=== PATIENT | male | born 1950 | race Caucasian/White ===

== ENCOUNTER → 2017-12-26 | Emergency (ER) | payer MEDICARE, OTHER ==
[~2017-12-26] VITALS: Ht 172.7 cm; Wt 95.2 kg
[~2017-12-26] MED LIST: CELEBREX100 MG PO; COUMADIN2 MG PO; EXTRA STRENGTH500 MG PO; FLOMAX0.4 MG PO; GLUCOSAMINE &1 EAC1 PO; LIDOCAINE-HC 3-07 G2 RC; LOW DOSE ASPIRI81 MG PO; MINIPRESS1 MG PO; PROTONIX40 MG PO; ZESTRIL20 MG PO
== END ==
LOC: ED 07:06
DX: G51.9 Disorder of facial nerve, unspecified (principal); F17.200 Nicotine dependence, unspecified, uncomplicated; Z88.2 Allergy status to sulfonamides; Z79.899 Other long term (current) drug therapy; Z79.82 Long term (current) use of aspirin; Z79.01 Long term (current) use of anticoagulants
CPT/HCPCS: 99282

== ENCOUNTER 2018-07-22 21:00 | Emergency (ER) | payer MEDICARE, OTHER ==
[~2018-07-22] VITALS: Ht 172.7 cm; Wt 95.2 kg
--- OUTSIDE RECORDS SUMMARY | ~2018-07-22 | XMS | Clinical Summary ---
Demographics + + + | Address | [address] | | | [place] [address] | + + + | Home Phone | | + + + | Preferred Language | Unknown | + + + | Marital Status | Unknown | + + + | Methodist Affiliation | Unknown | + + + | Race | Unknown | + + + | Ethnic Group | Unknown | + + + Author + + + | Author | [facility] | + + + | Organization | [facility] | + + + | Address | Unknown | + + + | Phone | Unavailable | + + + Support + + +---------+ + | Name | Relationship | Address | Phone | + + +---------+ + | Katherine Greenfield | ECON | Unknown | | + + +---------+ + | Toma Bradshaw | ECON | Unknown | | + + +---------+ + Care Team Providers + +------+ + | Care Advertising Operations Manager Name | Role | Phone | + +------+ + | Nabeel Mitchell MD | PP | | + +------+ + Allergies + + + + + + | Active Allergy | Reactions | Severity | Noted | Comments | | | | | Date | | + + + + + + | Sulfa Antibiotics | Rash | Medium | 11/17/19 | | | | | | 17 | | + + + + + + Current Medications + + +-------+---------+------+------+-------+ | Prescription | Sig. | Disp. | Refills | Star | End | Statu | | | | | | t | Date | s | | | | | | Date | | | + + +-------+---------+------+------+-------+ | lisinopril | Take 20 mg by mouth | | | | | Activ | | (ZESTRIL) 20 MG | daily. | | | | | e | | tablet | | | | | | | + + +-------+---------+------+------+-------+ | pantoprazole | Take 40 mg by mouth | | | | | Activ | | (PROTONIX) 40 MG | every morning before | | | | | e | | tablet | breakfast. | | | | | | + + +-------+---------+------+------+-------+ | aspirin 81 MG | Take 81 mg by mouth | | | | | Activ | | tablet | daily. | | | | | e | + + +-------+---------+------+------+-------+ | TAMSULOSIN HCL PO | Take 0.8 mg by mouth | | | | | Activ | | | daily. | | | | | e | + + +-------+---------+------+------+-------+ | warfarin | Take 5 mg by mouth. | | | | | Activ | | (COUMADIN) 5 MG | | | | | | e | | tablet | | | | | | | + + +-------+---------+------+------+-------+ | warfarin | Take 2 mg by mouth. | | | | | Activ | | (COUMADIN) 2 MG | | | | | | e | | tablet | | | | | | | + + +-------+---------+------+------+-------+ | LORazepam (ATIVAN) | Take 1 mg by mouth | | | | | Activ | | 1 MG tablet | as needed for | | | | | e | | | Anxiety. | | | | | | + + +-------+---------+------+------+-------+ | fluticasone | 1 spray by Each Nare | | | | | Activ | | (FLONASE) 50 MCG/ACT | route as needed for | | | | | e | | nasal | Rhinitis. | | | | | | + + +-------+---------+------+------+-------+ | hydrocortisone 2.5 | Apply topically as | | | | | Activ | | % cream | needed. | | | | | e | + + +-------+---------+------+------+-------+ | acyclovir | Take 800 mg by mouth | | | | | Activ | | (ZOVIRAX) 800 MG | daily. | | | | | e | | tablet | | | | | | | + + +-------+---------+------+------+-------+ | Cholecalciferol | Take by mouth | | | | | Activ | | (VITAMIN D3 PO) | daily. | | | | | e | + + +-------+---------+------+------+-------+ Active Problems + + + | Problem | Noted Date | + + + | Benign hypertension | 11/17/2016 | + + + | Dyslipidemia | 11/17/2016 | + + + | S/P AVR (aortic valve replacement) and aortoplasty | 06/14/2016 | + + + Family History + +------+ + + | Relation | Name | Status | Comments | + +------+ + + | Father | | | | + +------+ + + | Mother | | | | + +------+ + + Social History + +-------+ +--------+------+ | Tobacco Use | Types | Packs/Day | Years | Date | | | | | Used | | + +-------+ +--------+------+ | Current Some Day | | | | | | Smoker | | | | | + +-------+ +--------+------+ + + +---------+ + | Alcohol Use | Drinks/We | oz/Week | Comments | | | ek | | | + + +---------+ + | Yes | | | beer once every two weeks | + + +---------+ + + + + | Sex Assigned at | Date Recorded | | | | + + + | Not on file | | + + + Last Filed Vital Signs + + + + | Vital Sign | Reading | Time Taken | + + + + | Blood Pressure | 142/72 | 11/17/2016 2:15 PM PST | + + + + | Pulse | 61 | 11/17/2016 2:15 PM PST | + + + + | Temperature | - | - | + + + + | Respiratory Rate | - | - | + + + + | Oxygen Saturation | 97% | 11/17/2016 2:15 PM PST | + + + + | Inhaled Oxygen | - | - | | Concentration | | | + + + + | Weight | 92.5 kg (204 lb) | 11/17/2016 2:15 PM PST | + + + + | Height | 172.7 cm (5' 8") | 11/17/2016 2:15 PM PST | + + + + | Body Mass Index | 31.02 | 11/17/2016 2:15 PM PST | + + + + Plan of Treatment + + + + + | Health Maintenance | Due Date | Last Done | Comments | + + + + + | Colon Cancer | | | | | Screening | 9 | | | | (Colonoscopy) | | | | + + + + + | Vaccine: Zoster (1 | | | | | of 2) | 9 | | | + + + + + | Vaccine: | | | | | Pneumococcal 65+ | 4 | | | | Low/Medium Risk (1 | | | | | of 2 - PCV13) | | | | + + + + + | Vaccine: Influenza | | 08/20/2013, 08/04/2012, | | | (#1) | 8 | 08/07/2010, Additional history | | | | | exists | | + + + + + | Vaccine: | | 10/16/2008 | | | Dtap/Tdap/Td (2 - | 8 | | | | Td) | | | | + + + + + Results Not on filefrom Last 3 Months Insurance + +--------+ +------+-------+ + | Payer | Benefi | Subscriber | Type | Phone | Address | | | t Plan | ID | | | | | | / | | | | | | | Group | | | | | + +--------+ +------+-------+ + | COMMERCIAL OTHER | COMMER | [id number] | | | | | | CIAL | | | | | | | GENERI | | | | | | | C PLAN | | | | | + +--------+ +------+-------+ + | MEDICARE | MEDICA | [id number] | | | [address] | | | RE | | | | [place] [id number] | | | IP-OP | | | | | + +--------+ +------+-------+ + + +--------+ +--------+ + + | Guarantor Name | Accoun | Relation to | Date | Phone | Billing Address | | | t Type | Patient | of | | | | | | | | | | + +--------+ +--------+ + + | JASMEET BRADSHAW | Person | Self [birth year] | Home: | [address] | | | [place] | | 1950 | [phone] | [place] | | | [place] | | | [phone] | [phone] | + +--------+ +--------+ + +
--- OUTSIDE RECORDS SUMMARY | ~2018-07-22 | XMS | Clinical Summary ---
Demographics + + + | Address | [address] | | | [place] [address] | + + + | Home Phone | | + + + | Preferred Language | Unknown | + + + | Marital Status | Single | + + + | Mormonism Affiliation | 1041 | + + + | Race | Unknown | + + + | Ethnic Group | Unknown | + + + Author + + + | Author | [facility] | | | [facility] | + + + | Organization | [facility] | | | [facility] | + + + | Address | Unknown | + + + | Phone | Unavailable | + + + Support + + +---------+ + | Name | Relationship | Address | Phone | + + +---------+ + | Katherine Greenfield | ECON | Unknown | | + + +---------+ + Care Team Providers + +------+ + | Care Drill Press Hand Name | Role | Phone | + +------+ + | Pilar Galdamez MD | PP | | + +------+ + Allergies + + + + + + | Active Allergy | Reactions | Severity | Noted | Comments | | | | | Date | | + + + + + + | Bupropion | Anxiety | High | 02/25/20 | Anxiety and | | | | | 17 | strange dreams | + + + + + + | Sulfa Antibiotics | Rash | Medium | 02/25/20 | | | | | | 17 | | + + + + + + Current Medications + + +-------+---------+------+------+-------+ | Prescription | Sig. | Disp. | Refills | Star | End | Statu | | | | | | t | Date | s | | | | | | Date | | | + + +-------+---------+------+------+-------+ | acyclovir | Take 800 mg by | | | | | Activ | | (ZOVIRAX) 800 mg | mouth. | | | | | e | | tablet | | | | | | | + + +-------+---------+------+------+-------+ | aspirin 81 MG | Take 81 mg by mouth. | | | | | Activ | | tablet | | | | | | e | + + +-------+---------+------+------+-------+ | cholecalciferol | Take by mouth. | | | | | Activ | | (VITAMIN D-3) 400 | | | | | | e | | units capsule | | | | | | | + + +-------+---------+------+------+-------+ | fluticasone | 2 sprays by Nasal | | | | | Activ | | (FLONASE) 50 | route Daily. | | | | | e | | mcg/nasal spray | | | | | | | + + +-------+---------+------+------+-------+ | lisinopril | Take 20 mg by mouth | | | | | Activ | | (PRINIVIL, ZESTRIL) | Daily. | | | | | e | | 20 mg tablet | | | | | | | + + +-------+---------+------+------+-------+ | hydrocortisone | Apply topically. | | | | | Activ | | 2.5% cream | | | | | | e | + + +-------+---------+------+------+-------+ | LORazepam (ATIVAN) | Take 1 mg by mouth. | | | | | Activ | | 1 mg tablet | | | | | | e | + + +-------+---------+------+------+-------+ | pantoprazole | Take 40 mg by mouth. | | | | | Activ | | (PROTONIX) 40 mg | | | | | | e | | tablet | | | | | | | + + +-------+---------+------+------+-------+ | tamsulosin | Take 0.8 mg by mouth | | | | | Activ | | (FLOMAX) 0.4 mg CAPS | nightly. | | | | | e | + + +-------+---------+------+------+-------+ | warfarin | Take 2 mg by mouth | | | | | Activ | | (COUMADIN) 2 mg | Daily. | | | | | e | | tablet | | | | | | | + + +-------+---------+------+------+-------+ | celecoxib | | | 1 | 04/1 | | Activ | | (CELEBREX) 200 mg | | | | 3/20 | | e | | capsule | | | | 17 | | | + + +-------+---------+------+------+-------+ | sildenafil | Take 100 mg by mouth | | | | | Activ | | (VIAGRA) 100 MG | as needed for | | | | | e | | tablet | Erectile | | | | | | | | Dysfunction. | | | | | | + + +-------+---------+------+------+-------+ | amoxicillin | Take 500 mg by | | | | | Activ | | (AMOXIL) 500 MG | mouth. Take four | | | | | e | | tablet | capsules by mouth on | | | | | | | | one hour prior | | | | | | | | dental to work to | | | | | | | | prevent heart valve | | | | | | | | infection | | | | | | + + +-------+---------+------+------+-------+ Active Problems + + + | Problem | Noted Date | + + + | Benign hypertension | 11/17/2016 | + + + | Dyslipidemia | 11/17/2016 | + + + | History of aortic valve replacement | 02/19/2013 | + + + + + | Overview: Overview: | | [facility]DL[facility] f/u: aortic valve replacement and aortic root conduit for | | aneurysm, hx of paroxysmal atrial fibrillation, TIA | + + + + + | Benign prostatic hyperplasia | 05/27/2010 | + + + | Gastroesophageal reflux disease | 05/27/2010 | + + + | Herpes | 05/27/2010 | + + + | Scoliosis of lumbar spine | 12/30/2008 | + + + | History of stroke without residual deficits | 09/27/2008 | + + + + + | Overview: Overview: | | During CV surgery | | CT head 2006: | | IMPRESSION : | | Subtle left internal capsule and right caudate nucleus | | hypodensities, suggestive of lacunar infarcts, age indeterminate. | + + + + + | Degeneration of intervertebral disc of lumbar region | 09/16/2008 | + + + | Paroxysmal atrial fibrillation (HCC) | 12/09/2005 | + + + + + | Overview: Overview: | | [facility] f/u: aortic valve replacement and aortic root conduit for | | aneurysm, hx of paroxysmal atrial fibrillation, TIA | + + + + + | Essential (primary) hypertension | 12/09/2005 | + + + | Chronic hepatitis C virus infection (HCC) | 07/19/2005 | + + + + + | Overview: Overview: | | Metavir F0-F1 | + + Social History + +-------+ +--------+------+ | Tobacco Use | Types | Packs/Day | Years | Date | | | | | Used | | + +-------+ +--------+------+ | Never Smoker | | | | | + +-------+ +--------+------+ + + + | Sex Assigned at | Date Recorded | | | | + + + | Not on file | | + + + Last Filed Vital Signs + + + + | Vital Sign | Reading | Time Taken | + + + + | Blood Pressure | - | - | + + + + | Pulse | - | - | + + + + | Temperature | 36.5 C (97.7 F) | 02/24/2017 0956 PDT | + + + + | Respiratory Rate | - | - | + + + + | Oxygen Saturation | - | - | + + + + | Inhaled Oxygen | - | - | | Concentration | | | + + + + | Weight | 90.3 kg (199 lb) | 02/24/2017955 PDT | + + + + | Height | 172.7 cm (5' 8") | 02/24/2017955 PDT | + + + + | Body Mass Index | 30.26 | 02/24/2017955 PDT | + + + + Plan of Treatment + + + + + | Health Maintenance | Due Date | Last Done | Comments | + + + + + | Colorectal Cancer | | | | | Screening [...] | + + + + + | Statin Therapy | | | | | (optimal intensity) | 6 | | | + + + + [...] | + + + + + | Hepatitis C | Completed | 07/19/2005 | | | Screening | | | | + + + + + Results Not on filefrom Last 3 Months Insurance + +--------+ +--------+ +---------+ | Payer | Benefi | Subscriber | Type | Phone | Address | | | t Plan | ID | | | | | | / | | | | | | | Group | | | | | + +--------+ +--------+ +---------+ | [employer]MIN | [employer] | [id number] | Indemn | | | | | NS | | ity | | | | | CHOICE | | | | | + +--------+ +--------+ +---------+ | MEDICARE | MEDICA | [id number] | Medica | [phone] | | | RE | | re | [phone] | | | | PART A | | | | | | | AND B | | | | | + +--------+ +--------+ +---------+ + +--------+ +--------+ + + | Guarantor Name | Accoun | Relation to | Date | Phone | Billing Address | | | t Type | Patient | of | | | | | | | | | | + +--------+ +--------+ + + | NEELIMA BRADSHAW | Person | Self [birth year] | Home: | [address] | | | [place] | | 1950 | [phone] | [place] [address] | | | [place] | | | [phone] | | + +--------+ +--------+ + +
--- OUTSIDE RECORDS SUMMARY | ~2018-07-22 | XMS | Clinical Summary ---
Demographics + + + | Address | [address] | | | [place] [address] | + + + | Home Phone | | + + + | Preferred Language | Unknown | + + + | Marital Status | Single | + + + | Islam Affiliation | 1041 | + + + | Race | Unknown | + + + | Ethnic Group | Unknown | + + + Author + + + | Author | [facility] | | | and [facility] | + + + | Organization | [facility] | | | and [...] Team Providers + +------+ + | Care Die Cutter Operator Name | Role | Phone | + [...] +---------+ | [employer] | [employer] | [id number] | Indemn | | | | | NS | | ity | | | | | CHOICE | | | | | + +--------+ +--------+ +---------+ | MEDICARE | MEDICA | [id number] | Medica | [phone] | | | [...] | | [place] | | 1950 | [phone] | [place] [address] | | | [place] | | | [phone] | | + +--------+ +--------+ + +
--- OUTSIDE RECORDS SUMMARY | ~2018-07-22 | XMS | Clinical Summary ---
Demographics + + + | Address | [address] | | | [place] [address] | + + + | Home Phone | | + + + | Preferred Language | Unknown | + + + | Marital Status | Unknown | + + + | Mandaen Affiliation | Unknown | + + + | Race | Unknown | + + + | Ethnic Group | Unknown | + + + Author + + + | Author | [facility] | + + + | Organization | [facility] | + + + | Address [...] Team Providers + +------+ + | Care Senior Data Developer Name | Role | Phone | + [...] + | COMMERCIAL OTHER | COMMER | [id number] | | | | | | CIAL | | | | | | | GENERI | | | | | | | C PLAN | | | | | + +--------+ +------+-------+ + | MEDICARE | MEDICA | [id number] | | | [address] | | | RE | | | | [place] [phone] | | | IP-OP | | | [...] | | [place] | | 1950 | [phone] | [place] | | | [place] | | | [phone] | [phone] | + +--------+ +--------+ + +
[2018-07-22] MEDS ORDERED: MIRALAX17 GM PO (21:59)
== END 2018-07-22 22:08 | disposition home or self-care (01) ==
LOC: ED 21:00
DX: K59.00 Constipation, unspecified (principal); F17.200 Nicotine dependence, unspecified, uncomplicated; Z88.2 Allergy status to sulfonamides; Z79.899 Other long term (current) drug therapy; Z79.01 Long term (current) use of anticoagulants
CPT/HCPCS: 99283